=== PATIENT | male | born 1985 | race African-American/Black ===

== ENCOUNTER 2016-09-29 04:53 | Emergency (ER) | payer MEDICAID ==
[~2016-09-29] VITALS: Ht 180.3 cm; Wt 70.3 kg
[2016-09-29] MEDS ORDERED: SODIUM CHLORIDE 0.9% 1,000 ML IVB ONE ×2 (06:17→08:01)
[2016-09-29 06:30] LABS: Urine RBC None Seen /hpf (0 - 3)
[2016-09-29 06:36] LABS: Urine Bilirubin Negative (Negative); Urine Blood Negative /uL (Negative); Urine Color Yellow (Yellow); Urine Glucose Normal (Normal); Urine Ketone Negative (Negative); Urine Nitrite Negative (Negative); Urine Squamous Epithelial Cell FEW /hpf (<5); Urine Urobilinogen Normal (Negative); Urine pH 6.5 (5.0-8.0)
[2016-09-29 06:38] LABS: CONDITION Y; Hematocrit 41.6 % (41.0-53.0); Hemoglobin 14.6 g/dL (13.5-17.5); Mean Corpuscular Hemoglobin 33.8 pg (28.0-32.0); Mean Corpuscular Volume 96.6 fL (80.0-100.0); Mean Platelet Volume 7.6 fL (7.4-10.4); Platelet Count (auto) 266 10^3/uL (140-450); Red Cell Distribution Width 14.9 % (11.6-16.0)
[2016-09-29 06:45] LABS: Metamyelocytes % 0; Myelocytes % 0; Promyelocytes % 0; Reactive Lymphocytes 0
[2016-09-29 07:15] LABS: Albumin 3.4 g/dL (3.4-5.0); BUN/Creatinine Ratio 11.4; Bilirubin, Total 0.2 mg/dL (0.2-1.0); Calcium 8.1 mg/dL (8.5-10.1); Magnesium 2.3 mg/dL (1.6-2.6); Potassium 3.2 mmol/L (3.5-5.1); Total Protein 7.3 g/dL (6.4-8.2)
[2016-09-29 07:19] LABS: Acetaminophen < 2.0 ug/mL (10-30); Salicylate 2.1 mg/dL (2.8-20.0)
[2016-09-29 07:52] LABS: Platelet Estimate Adequate
[2016-09-29 07:53] LABS: RBC Morphology Normal
[2016-09-29 09:21] VITALS: BP 132/78
== END 2016-09-29 10:09 | disposition home or self-care (01) ==
LOC: EDBD 04:53 → ER 04:53
DX: T42.4X1A Poisoning by benzodiazepines, accidental (unintentional), initial encounter (principal); R41.82 Altered mental status, unspecified; R53.83 Other fatigue; Y99.8 Other external cause status; Y93.89 Activity, other specified; Y92.89 Other specified places as the place of occurrence of the external cause
CPT/HCPCS: 36415; 80053; 80307; 80320; 80329; 81001; 83735; 85007; 85027; 93005; 94761; 96360; 96361; 99285; J7030